=== PATIENT | female | born 1940 | race Caucasian/White ===

== ENCOUNTER 2016-11-10 14:11 | Outpatient (CLI) | payer MEDICARE, BC ==
[2016-11-10 19:11] LABS: BASOPHILS % (AUTO) 0.7 %; EOSINOPHILS # (AUTO) 0.1 10^3/uL (0.0-0.7); EOSINOPHILS % (AUTO) 2.1 %; HCT - HEMATOCRIT 39.5 % (37.0-47.0); HGB - HEMOGLOBIN 13.2 g/dL (12.0-16.0); LYMPHOCYTES # (AUTO) 1.8 10^3/uL (1.5-3.5); LYMPHOCYTES % (AUTO) 31.9 %; MEAN CORPUSCULAR HEMOGLOBIN 30.7 pg (27.0-31.0); MEAN CORPUSCULAR HGB CONC 33.4 g/dL (32.0-36.0); MEAN CORPUSCULAR VOLUME 91.8 fL (81.0-99.0); MEAN PLATELET VOLUME 8.8 fL (7.9-10.8); MONOCYTES # (AUTO) 0.4 10^3/uL (0.0-1.0); NEUTROPHILS # (AUTO) 3.4 10^3/uL (1.5-6.6); NEUTROPHILS % (AUTO) 58.3 %; RED CELL DISTRIBUTION WIDTH 13.4 % (12.0-15.0); UNCORRECTED WHITE BLOOD COUNT 5.8 x10^3/uL; WHITE BLOOD COUNT 5.8 x10^3/uL (4.8-10.8)
[2016-11-10 19:25] LABS: HEMOGLOBIN A1C 0.55 g/dL
[2016-11-10 19:31] LABS: ALBUMIN/GLOBULIN RATIO 1.8 (1.0-2.2); BILIRUBIN,TOTAL 0.9 mg/dL (0.2-1.0); BUN - BLOOD UREA NITROGEN 10 mg/dL (6-20); CALCIUM 9.7 mg/dL (8.5-10.3); CARBON DIOXIDE - CO2 28 mmol/L (21-32); CHLORIDE 103 mmol/L (101-111); CHOL/HDL RATIO 5.4 (<4.4); CHOLESTEROL 249 mg/dL; CREATININE 0.7 mg/dL (0.4-1.0); GFR - MDRD 82 (>89); GLUCOSE 105 mg/dL (70-100); HDL CHOLESTEROL 46 mg/dL; LDL/HDL RATIO 3.1 (<4.4); POTASSIUM 4.2 mmol/L (3.5-5.0); SODIUM 138 mmol/L (135-145); TOTAL PROTEIN 7.7 g/dL (6.7-8.2); TRIGLYCERIDES 310 mg/dL; VLDL CHOLESTEROL 62 mg/dL
== END 2016-11-10 14:12 | disposition home or self-care (01) ==
LOC: LAB.WCP 14:11
PROVIDERS: ATTEND Physician Assistant Medical
DX: E78.9 Disorder of lipoprotein metabolism, unspecified (principal); R73.9 Hyperglycemia, unspecified; K21.9 Gastro-esophageal reflux disease without esophagitis
CPT/HCPCS: 36415; 80053; 80061; 83036; 85025

== ENCOUNTER 2017-06-14 09:44 | Outpatient (CLI) | payer MEDICARE, BC ==
--- NOTE | 2017-06-17 12:09 | Mammography Report ---
BILATERAL DIAGNOSTIC MAMMOGRAM, AND LEFT BREAST ULTRASOUND: 06/14/2017 HISTORY: Breast pain. Status post breast implant explantation. COMPARISON: 09/10/2013, 08/20/2009, 02/10/2007. TECHNIQUE: Bilateral digital CC, MLO, left true lateral views were obtained. FINDINGS: There are scattered fibroglandular densities. Asymmetry of the breast tissue with deformity of the inferior left breast is consistent with prior surgery and explantation. There is no new dominant mass, skin thickening, clustered suspicious microcalcification, or significant interval change. LEFT BREAST ULTRASOUND TECHNIQUE: Real-time scanning by the coal carrier of the inferior left breast from the 4-o'clock to 8-o'clock position. This corresponds to the area of clinical pain. FINDINGS: No cystic or solid mass, abnormal fluid collection or other finding. IMPRESSION: NEGATIVE. BI-RADS CATEGORY 1 - NEGATIVE. SUGGEST CLINICAL FOLLOWUP OF LEFT BREAST PAIN AND ROUTINE SCREENING IN 12 MONTHS. STANDARD QUALIFYING STATEMENTS 1. This examination was reviewed with the aid of Computer-Aided Detection (CAD). 2. A negative or benign imaging report should not delay biopsy if clinically suspicious findings are present. Consider surgical consultation if warranted. More than 5% of cancers are not identified by imaging. 3. Dense breasts may obscure an underlying neoplasm. TD: 06/14/2017 13:27
== END 2017-06-14 09:45 | disposition home or self-care (01) ==
LOC: DI 09:44
PROVIDERS: ATTEND Physician Assistant Medical
DX: N64.4 Mastodynia (principal)
CPT/HCPCS: 76642; 77066

== ENCOUNTER 2017-11-30 10:29 | Outpatient (CLI) | payer MEDICARE, BC ==
[2017-11-30 13:02] LABS: BASOPHILS % (AUTO) 0.7 %; EOSINOPHILS # (AUTO) 0.1 10^3/uL (0.0-0.7); EOSINOPHILS % (AUTO) 3.2 %; HGB - HEMOGLOBIN 12.6 g/dL (12.0-16.0); LYMPHOCYTES # (AUTO) 1.6 10^3/uL (1.5-3.5); LYMPHOCYTES % (AUTO) 39.3 %; MEAN CORPUSCULAR HEMOGLOBIN 31.7 pg (27.0-31.0); MEAN CORPUSCULAR HGB CONC 34.6 g/dL (32.0-36.0); MEAN CORPUSCULAR VOLUME 91.8 fL (81.0-99.0); MEAN PLATELET VOLUME 8.7 fL (7.9-10.8); MONOCYTES # (AUTO) 0.3 10^3/uL (0.0-1.0); MONOCYTES % (AUTO) 8.3 %; NEUTROPHILS % (AUTO) 48.5 %; PLT - PLATELET COUNT 173 10^3/uL (130-450); RED BLOOD COUNT 3.98 10^6/uL (4.20-5.40); RED CELL DISTRIBUTION WIDTH 13.6 % (12.0-15.0)
[2017-11-30 13:57] LABS: ALBUMIN 4.4 g/dL (3.2-5.5); ALBUMIN/GLOBULIN RATIO 1.5 (1.0-2.2); ALKALINE PHOSPHATASE 66 IU/L (42-121); ALT ALANINE AMINOTRANSFERASE 19 IU/L (10-60); AST ASPARTATE AMINOTRANSFERASE 21 IU/L (10-42); BILIRUBIN,TOTAL 0.6 mg/dL (0.2-1.0); BUN - BLOOD UREA NITROGEN 11 mg/dL (6-20); CALCIUM 9.2 mg/dL (8.5-10.3); CARBON DIOXIDE - CO2 26 mmol/L (21-32); CHLORIDE 105 mmol/L (101-111); CHOL/HDL RATIO 4.9 (<4.4); CHOLESTEROL 211 mg/dL; CREATININE 0.7 mg/dL (0.4-1.0); GFR - MDRD 82 (>89); GLUCOSE 106 mg/dL (70-100); HDL CHOLESTEROL 43 mg/dL; LDL CHOLESTEROL,CALCULATED 122 mg/dL; LDL/HDL RATIO 2.8 (<4.4); SODIUM 138 mmol/L (135-145); TOTAL PROTEIN 7.3 g/dL (6.7-8.2); VLDL CHOLESTEROL 46 mg/dL
[2017-11-30 13:59] LABS: HB2 TOTAL 12.9 g/dL; HEMOGLOBIN A1C 0.48 g/dL; HEMOGLOBIN A1C % 5.6 % (4.6-6.2)
== END 2017-11-30 10:30 | disposition home or self-care (01) ==
LOC: LAB.WCP 10:29
PROVIDERS: ATTEND Physician Assistant Medical
DX: E78.9 Disorder of lipoprotein metabolism, unspecified (principal); R73.9 Hyperglycemia, unspecified; K21.9 Gastro-esophageal reflux disease without esophagitis
CPT/HCPCS: 36415; 80053; 80061; 83036; 83721; 85025

== ENCOUNTER 2018-12-04 08:00 | Outpatient (CLI) | payer MEDICARE, BC ==
[2018-12-04 13:57] LABS: ALBUMIN 4.5 g/dL (3.2-5.5); ALBUMIN/GLOBULIN RATIO 1.4 (1.0-2.2); ALKALINE PHOSPHATASE 83 IU/L (42-121); ALT ALANINE AMINOTRANSFERASE 30 IU/L (10-60); AST ASPARTATE AMINOTRANSFERASE 24 IU/L (10-42); BILIRUBIN,TOTAL 0.8 mg/dL (0.2-1.0); BUN - BLOOD UREA NITROGEN 9 mg/dL (6-20); CALCIUM 9.5 mg/dL (8.5-10.3); CARBON DIOXIDE - CO2 28 mmol/L (21-32); CHLORIDE 102 mmol/L (101-111); CHOL/HDL RATIO 4.6 (<4.4); CHOLESTEROL 230 mg/dL; CREATININE 0.8 mg/dL (0.4-1.0); GFR - MDRD 70 (>89); GLUCOSE 105 mg/dL (70-100); HDL CHOLESTEROL 50 mg/dL; LDL CHOLESTEROL,CALCULATED 110 mg/dL; LDL/HDL RATIO 2.2 (<4.4); SODIUM 139 mmol/L (135-145); TOTAL PROTEIN 7.7 g/dL (6.7-8.2); VLDL CHOLESTEROL 70 mg/dL
[2018-12-04 13:59] LABS: HB2 TOTAL 13.9 g/dL; HEMOGLOBIN A1C 0.54 g/dL; HEMOGLOBIN A1C % 5.7 % (4.6-6.2)
[2018-12-04 14:00] LABS: BASOPHILS % (AUTO) 0.4 %; EOSINOPHILS # (AUTO) 0.1 10^3/uL (0.0-0.7); HGB - HEMOGLOBIN 13.2 g/dL (12.0-16.0); LYMPHOCYTES # (AUTO) 1.5 10^3/uL (1.5-3.5); LYMPHOCYTES % (AUTO) 18.9 %; MEAN CORPUSCULAR HEMOGLOBIN 31.7 pg (27.0-31.0); MEAN CORPUSCULAR VOLUME 96.2 fL (81.0-99.0); MEAN PLATELET VOLUME 10.6 fL (7.9-10.8); MONOCYTES # (AUTO) 0.8 10^3/uL (0.0-1.0); MONOCYTES % (AUTO) 10.6 %; NEUTROPHILS # (AUTO) 5.3 10^3/uL (1.5-6.6); NEUTROPHILS % (AUTO) 68.8 %; PLT - PLATELET COUNT 165 10^3/uL (130-450); RED BLOOD COUNT 4.16 10^6/uL (4.20-5.40); RED CELL DISTRIBUTION WIDTH 12.8 % (12.0-15.0); WHITE BLOOD COUNT 7.7 x10^3/uL (4.8-10.8)
== END 2018-12-04 23:59 | disposition home or self-care (01) ==
LOC: LAB.WCP 08:00
PROVIDERS: ATTEND Physician Assistant Medical
DX: E78.5 Hyperlipidemia, unspecified (principal); R73.9 Hyperglycemia, unspecified; K21.9 Gastro-esophageal reflux disease without esophagitis
CPT/HCPCS: 36415; 80053; 80061; 83036; 83721; 84443; 85025

== ENCOUNTER 2019-01-19 08:00 | Outpatient (CLI) | payer MEDICARE, BC | END 2019-01-19 23:59 | disposition home or self-care (01) | LOC: LAB.R 08:00 | PROVIDERS: ATTEND Physician Assistant | DX: R19.7 Diarrhea, unspecified (principal) | CPT/HCPCS: 81599; 82274; 87045; 87046; 87177; 87209; 87329; 87493 ==

== ENCOUNTER 2019-10-03 08:39 | Outpatient (CLI) | payer MEDICARE, BC ==
[2019-10-03 12:07] LABS: ALBUMIN 4.7 g/dL (3.2-5.5); ALBUMIN/GLOBULIN RATIO 1.5 (1.0-2.2); ALKALINE PHOSPHATASE 63 IU/L (42-121); ALT ALANINE AMINOTRANSFERASE 22 IU/L (10-60); AST ASPARTATE AMINOTRANSFERASE 21 IU/L (10-42); BUN - BLOOD UREA NITROGEN 13 mg/dL (6-20); CALCIUM 9.7 mg/dL (8.5-10.3); CARBON DIOXIDE - CO2 25 mmol/L (21-32); CHLORIDE 105 mmol/L (101-111); CREATININE 0.8 mg/dL (0.4-1.0); GLUCOSE 106 mg/dL (70-100); SODIUM 138 mmol/L (135-145); TOTAL PROTEIN 7.8 g/dL (6.7-8.2)
== END 2019-10-03 23:59 | disposition home or self-care (01) ==
LOC: LAB.WCP 08:39
PROVIDERS: ATTEND Family Medicine
DX: R26.0 Ataxic gait (principal); I10 Essential (primary) hypertension
CPT/HCPCS: 36415; 80053; 82607; 84443

== ENCOUNTER 2020-05-24 14:17 | Emergency (ER) | payer MEDICARE, BC ==
--- NOTE | 2020-05-24 14:37 | ED Physician Documentation ---
PD HPI SYNCOPE - Stated complaint Stated Complaint: NAUSEA/WEAKNESS - Chief complaint Chief Complaint: General - History obtained from History obtained from: Patient, Family - History of Present Illness Witnessed: Unwitnessed (She states she was sitting on the toilet, just had a bowel movement and felt lightheaded then awoke face against sink. Mild contusion on the bridge of her nose. She denies any headache. She called her son to help her up. She has continued mild general weakness without other specific sxs.) Timing - onset: Yesterday Duration: Minutes Preceding symptoms: Light headed. No: Headache, Chest pain, Dyspnea, Abdominal pain Associated symptoms: Nausea / vomiting (emesis once at time of the syncope.) Contributing factors: Other (just had bowel movement. She states she had 2nd COVID shot 5 days ago but was feeling okay without fevers, myalgias, vomiting nor diarrhea.). No: Recent med change, Decreased PO intake, Just stood up Injury occurred: No: Head injury (bridge of nose, but not head itself.), Neck injury Similar symptoms before: Has not had sx before Recently seen: Not recently seen Review of Systems Constitutional: denies: Fever, Chills, Myalgias (just some local soreness left deltoid area where she got her vaccine.) Nose: denies: Rhinorrhea / runny nose, Congestion Respiratory: denies: Dyspnea, Cough GI: denies: Abdominal Pain, Nausea, Diarrhea, Bloody / black stool : denies: Dysuria Skin: denies: Abrasion (s), Laceration (s) Musculoskeletal: denies: Neck pain, Back pain Neurologic: reports: Generalized weakness. denies: Focal weakness, Numbness, Confused, Altered mental status, Headache Psychiatric: denies: Insomnia Endocrine: denies: Weight loss PD PAST MEDICAL HISTORY - Past Medical History Cardiovascular: Hypertension, High cholesterol - Past Surgical History Past Surgical History: Yes - Present Medications Home Medications: Ambulatory Orders Medication Instructions Recorded Confirmed Atorvastatin Calcium 10 mg PO DAILY 05/24/20 05/24/20 Mecobalamin [B12 Active] 1,000 mcg PO DAILY 05/24/20 05/24/20 Melatonin/Pyridoxine [Melatonin 5 5 mg PO DAILY PM 05/24/20 05/24/20 mg Tablet] Metoprolol Tartrate [Lopressor] 50 mg PO DAILY 05/24/20 05/24/20 Pantoprazole [Protonix] 1 tab PO DAILY 05/24/20 05/24/20 Sertraline HCl [Zoloft] 1 tab PO DAILY 05/24/20 05/24/20 Ubidecarenone [Co Q-10] 100 mg PO DAILY 05/24/20 05/24/20 - Allergies Allergies/Adverse Reactions: Allergies Allergy/AdvReac Type Severity Reaction Status Date / Time erythromycin lactobionate * Allergy Severe Hives Verified 05/24/20 14:45 [From Erythrocin] Penicillins Allergy Severe Hives Verified 05/24/20 14:45 Sulfa (Sulfonamide Allergy Severe Hives Verified 05/24/20 14:45 Antibiotics) - Social History Does the pt smoke?: No Smoking Status: Never smoker Does the pt drink ETOH?: Yes - Immunizations Immunizations are current?: No PD ED PE NORMAL - Vitals Vital signs reviewed: Yes - General General: Alert and oriented X 3, No acute distress, Well developed/nourished - HEENT HEENT: Atraumatic, Moist mucous membranes, Pharynx benign, Other (mild tenderness bridge of nose without deformity. ) - Neck Neck: Supple, no meningeal sign, No adenopathy - Cardiac Cardiac: RRR, No murmur - Respiratory Respiratory: Clear bilaterally - Abdomen Abdomen: Normal bowel sounds, Soft, Non tender - Rectal Rectal: Deferred - Back Back: No CVA TTP, No spinal TTP - Derm Derm: Normal color, Warm and dry - Extremities Extremities: No tenderness to palpate, Normal ROM s pain, No edema, No calf tenderness / cord - Neuro Neuro: Alert and oriented X 3, No motor deficit, No sensory deficit, Normal speech Eye Opening: Spontaneous Motor: Obeys Commands Verbal: Oriented GCS Score: 15 Results - Vitals Vitals: Vital Signs - 24 hr 05/24/20 05/24/20 05/24/20 14:24 14:56 15:54 Temperature 36.3 C L 36.3 C L Heart Rate 60 60 60 Respiratory 18 18 14 Rate Blood Pressure 169/68 H 169/68 H 151/60 H O2 Saturation 99 99 100 Oxygen O2 Source Room air - Labs Labs: Laboratory Tests 05/24/20 05/24/20 05/24/20 15:22 15:22 15:22 WBC 6.9 RBC 3.84 L Hgb 12.2 Hct 36.5 L MCV 95.1 MCH 31.8 H MCHC 33.4 RDW 12.4 Plt Count 156 MPV 10.4 Neut # (Auto) 4.1 Lymph # (Auto) 1.8 [place] # (Auto) 0.6 Eos # (Auto) 0.3 Baso # (Auto) 0.0 Absolute Nucleated RBC 0.00 Nucleated RBC % 0.0 Sodium 134 L Potassium 4.0 Chloride 100 L Carbon Dioxide 24 Anion Gap 10.0 BUN 12 Creatinine 0.8 Estimated GFR (MDRD) 69 L Glucose 101 H Calcium 9.4 Magnesium 1.9 Total Bilirubin 0.8 AST 22 ALT 31 Alkaline Phosphatase 81 Troponin I High Sens 2.8 Total Protein 7.3 Albumin 4.5 Globulin 2.8 Albumin/Globulin Ratio 1.6 Lipase 25 Urine Color Urine Clarity Urine pH Ur Specific [place] Urine Protein Urine Glucose (UA) Urine Ketones Urine Occult Blood Urine Nitrite Urine Bilirubin Urine Urobilinogen Ur Leukocyte Esterase Ur Microscopic Review Urine Culture Comments 05/24/20 16:35 WBC RBC Hgb Hct MCV MCH MCHC RDW Plt Count MPV Neut # (Auto) Lymph # (Auto) [place] # (Auto) Eos # (Auto) Baso # (Auto) Absolute Nucleated RBC Nucleated RBC % Sodium Potassium Chloride Carbon Dioxide Anion Gap BUN Creatinine Estimated GFR (MDRD) Glucose Calcium Magnesium Total Bilirubin AST ALT Alkaline Phosphatase Troponin I High Sens Total Protein Albumin Globulin Albumin/Globulin Ratio Lipase Urine Color YELLOW Urine Clarity CLEAR Urine pH 6.5 Ur Specific [place] 1.010 Urine Protein NEGATIVE Urine Glucose (UA) NEGATIVE Urine Ketones NEGATIVE Urine Occult Blood NEGATIVE Urine Nitrite NEGATIVE Urine Bilirubin NEGATIVE Urine Urobilinogen 0.2 (NORMAL) Ur Leukocyte Esterase NEGATIVE Ur Microscopic Review NOT INDICATED Urine Culture Comments NOT INDICATED PD MEDICAL DECISION MAKING - ED course Complexity details: reviewed results (Her blood tests EKG and chest x-ray are normal. No signs of heart attack. Blood sugar and electrolytes are good. No signs of infectious cause based on urine chest x-ray and blood count. I presume she had a transient drop in her blood pressure leading to the fainting.), considered differential (Sounds possibly vasovagal episode. No obvious cause based on history and symptoms and initial exam. Can do some basic labs EKG and monitor. I think less likely related to her vaccine 5 days ago. She had not really had ongoing symptoms.), d/w patient Departure - Departure Disposition: 01 Home, Self Care Clinical Impression: Episode of syncope Qualifiers: Syncope type: vasovagal syncope Qualified Code(s): R55 - Syncope and collapse Condition: Stable Record reviewed to determine appropriate education?: Yes Instructions: ED Syncope Vasovagal, ED Fainting Unkn Cause Follow-Up: Nicki Ortiz PA-C [Primary Care Provider] - Comments: Your EKG, chest x-ray, blood tests and urine test appear normal. No signs of heart attack or heart related cause for your fainting episode. You are not anemic. Your electrolytes are good. No signs of infection such as bladder or chest. This likely represents a random single episode. It may connect to the vaccine you have gotten on Tuesday though a would not say for sure. Vasovagal fainting episodes (a transient drop in blood pressure) occur occasionally and can relate to under hydration or other causes. However the testing above has really excluded significant causes. Continue usual medications. Stay well-hydrated. Recheck if recurrent episodes or associated lightheadedness or other problems.
[2020-05-24] MEDS ORDERED: SODIUM CHLORIDE 0.9% 1,000 ML IV STA (14:59)
--- NOTE | 2020-05-24 15:26 | XRAY Report ---
PROCEDURE: Chest 1 View X-Ray INDICATIONS: Chest Pain TECHNIQUE: One view of the chest was acquired. COMPARISON: 04/14/2016 FINDINGS: Surgical changes and devices: None. Lungs and pleura: No pleural effusions or pneumothorax. Lungs are clear. Mediastinum: Mediastinal contours appear normal. Heart size is normal. Bones and chest wall: No suspicious bony lesions. Overlying soft tissues appear unremarkable. IMPRESSION: No evidence acute pulmonary process. Reviewed by: Omar Ball MD on 05/24/2020 2:25 PM [facility] Approved by: Omar Ball MD on 05/24/2020 2:25 PM [facility] Station ID: [id number]
[2020-05-24 15:32] LABS: BASOPHILS % (AUTO) 0.6 %; EOSINOPHILS # (AUTO) 0.3 10^3/uL (0.0-0.7); EOSINOPHILS % (AUTO) 4.1 %; HCT - HEMATOCRIT 36.5 % (37.0-47.0); HGB - HEMOGLOBIN 12.2 g/dL (12.0-16.0); LYMPHOCYTES # (AUTO) 1.8 10^3/uL (1.5-3.5); LYMPHOCYTES % (AUTO) 26.6 %; MEAN CORPUSCULAR HEMOGLOBIN 31.8 pg (27.0-31.0); MEAN CORPUSCULAR HGB CONC 33.4 g/dL (32.0-36.0); MEAN CORPUSCULAR VOLUME 95.1 fL (81.0-99.0); MEAN PLATELET VOLUME 10.4 fL (7.9-10.8); MONOCYTES # (AUTO) 0.6 10^3/uL (0.0-1.0); MONOCYTES % (AUTO) 9.3 %; NEUTROPHILS # (AUTO) 4.1 10^3/uL (1.5-6.6); NEUTROPHILS % (AUTO) 59.1 %; PLT - PLATELET COUNT 156 10^3/uL (130-450); RED BLOOD COUNT 3.84 10^6/uL (4.20-5.40); RED CELL DISTRIBUTION WIDTH 12.4 % (12.0-15.0); WHITE BLOOD COUNT 6.9 x10^3/uL (4.8-10.8)
[2020-05-24 15:44] LABS: ALBUMIN 4.5 g/dL (3.2-5.5); ALBUMIN/GLOBULIN RATIO 1.6 (1.0-2.2); BILIRUBIN,TOTAL 0.8 mg/dL (0.2-1.0); CALCIUM 9.4 mg/dL (8.5-10.3); CREATININE 0.8 mg/dL (0.4-1.0); MAGNESIUM 1.9 mg/dL (1.7-2.8); TOTAL PROTEIN 7.3 g/dL (6.7-8.2)
[2020-05-24 16:44] LABS: BILIRUBIN,URINE NEGATIVE (NEGATIVE); GLUCOSE, URINE (UA) NEGATIVE (NEGATIVE); KETONES,URINE (UA) NEGATIVE (NEGATIVE); LEUKOCYTE ESTERASE, URINE NEGATIVE (NEGATIVE); NITRITE,URINE NEGATIVE (NEGATIVE); OCCULT BLOOD,URINE NEGATIVE (NEGATIVE); PH,URINE 6.5 PH (5.0-7.5); PROTEIN,URINE NEGATIVE (NEGATIVE); UROBILINOGEN,URINE 0.2 (NORMAL) E.U./dL (NORMAL)
[2020-05-24 16:46] LABS: CLARITY,URINE CLEAR (CLEAR)
[2020-05-24 17:16] VITALS: BP 171/64
== END 2020-05-24 15:20 | disposition home or self-care (01) ==
LOC: ED 14:17
DX: R55 Syncope and collapse (principal)
CPT/HCPCS: 36415; 80053; 81001; 81003; 83690; 83735; 84484; 85025; 87086; 93005; 99284

== ENCOUNTER 2020-09-30 13:25 | Outpatient (CLI) | payer MEDICARE, BC | END 2020-09-30 23:59 | disposition home or self-care (01) | LOC: LAB.N 13:25 | PROVIDERS: ATTEND Physician Assistant Medical | DX: J06.9 Acute upper respiratory infection, unspecified (principal); Z20.822 Contact with and (suspected) exposure to COVID-19 ==

== ENCOUNTER 2021-06-20 14:05 | Emergency (ER) | payer MEDICARE, BC ==
--- NOTE | 2021-06-20 14:30 | ED Physician Documentation ---
History of Present Illness - Stated complaint Stated Complaint: WEAKNESS/VOMITING - Chief complaint Chief Complaint: General - History obtained from History obtained from: Patient - History of Present Illness Timing: How many days ago (3) Pain level max: 0 Pain level now: 0 - Additonal information Additional information: 81-year-old female presents to the emergency department stating that she "has not felt well" for the past 3 days. Has had nausea for 3 days. Vomiting yesterday. Today she states she just feels weak all over. No chest pain. No shortness of breath. No headache. No vision changes. No focal neurological deficits. Review of Systems Ten Systems: 10 systems reviewed and negative Constitutional: denies: Fever, Chills Eyes: denies: Decreased vision Ears: denies: Ear pain Nose: denies: Rhinorrhea / runny nose, Congestion Throat: denies: Sore throat Cardiac: denies: Chest pain / pressure Respiratory: denies: Dyspnea, Cough GI: reports: Nausea, Vomiting. denies: Abdominal Pain, Diarrhea, Hematemesis, Bloody / black stool : denies: Dysuria Skin: denies: Rash Musculoskeletal: denies: Neck pain, Back pain Neurologic: denies: Headache PD PAST MEDICAL HISTORY - Past Medical History Cardiovascular: Hypertension, High cholesterol - Past Surgical History Past Surgical History: Yes - Present Medications Home Medications: Ambulatory Orders Medication Instructions Recorded Confirmed Atorvastatin Calcium 10 mg PO DAILY 05/24/20 06/20/21 Mecobalamin [B12 Active] 1,000 mcg PO DAILY 05/24/20 05/24/20 Melatonin/Pyridoxine [Melatonin 5 5 mg PO DAILY PM 05/24/20 05/24/20 mg Tablet] Metoprolol Tartrate [Lopressor] 50 mg PO DAILY 05/24/20 05/24/20 Pantoprazole [Protonix] 1 tab PO DAILY 05/24/20 05/24/20 Sertraline HCl [Zoloft] 1 tab PO DAILY 05/24/20 05/24/20 Ubidecarenone [Co Q-10] 100 mg PO DAILY 05/24/20 05/24/20 Ondansetron Odt [Zofran] 4 mg TL Q6H PRN #10 tablet 06/20/21 - Allergies Allergies/Adverse Reactions: Allergies Allergy/AdvReac Type Severity Reaction Status Date / Time erythromycin lactobionate * Allergy Severe Hives Verified 06/20/21 14:12 [From Erythrocin] Penicillins Allergy Severe Hives Verified 06/20/21 14:12 Sulfa (Sulfonamide Allergy Severe Hives Verified 06/20/21 14:12 Antibiotics) - Social History Does the pt smoke?: No Smoking Status: Never smoker Does the pt drink ETOH?: Yes Does the pt have substance abuse?: No - Immunizations Immunizations are current?: No - POLST Patient has POLST: No PD ED PE NORMAL - Vitals Vital signs reviewed: Yes - General General: Alert and oriented X 3, No acute distress - HEENT HEENT: Atraumatic, PERRL, Moist mucous membranes - Neck Neck: Supple, no meningeal sign - Cardiac Cardiac: RRR, Strong equal pulses - Respiratory Respiratory: No respiratory distress, Clear bilaterally - Abdomen Abdomen: Soft, Non tender, Non distended - Derm Derm: Warm and dry - Extremities Extremities: No edema, No calf tenderness / cord - Neuro Neuro: Alert and oriented X 3 - Psych Psych: Normal mood, Normal affect Results - Vitals Vitals: Vital Signs - 24 hr 06/20/21 06/20/21 14:12 15:57 Temperature 36.5 C 36.9 C Heart Rate 54 L 55 L Respiratory 16 16 Rate Blood Pressure 180/76 H 177/76 H O2 Saturation 98 97 Oxygen O2 Source Room air - Labs Labs: Laboratory Tests 06/20/21 06/20/21 06/20/21 14:29 14:29 15:30 WBC 5.9 RBC 4.51 Hgb 13.9 Hct 41.5 MCV 92.0 MCH 30.8 MCHC 33.5 RDW 12.3 Plt Count 174 MPV 9.8 Neut # (Auto) 3.5 Lymph # (Auto) 1.8 [place] # (Auto) 0.5 Eos # (Auto) 0.2 Baso # (Auto) 0.0 Absolute Nucleated RBC 0.00 Nucleated RBC % 0.0 Sodium 133 L Potassium 4.0 Chloride 96 L Carbon Dioxide 27 Anion Gap 10.0 BUN 9 Creatinine 0.8 Estimated GFR (MDRD) 69 L Glucose 130 H Calcium 9.6 Total Bilirubin 0.9 AST 33 ALT 50 Alkaline Phosphatase 89 Total Protein 7.8 Albumin 4.8 Globulin 3.0 Albumin/Globulin Ratio 1.6 Lipase 32 Urine Color YELLOW Urine Clarity CLEAR Urine pH 6.5 Ur Specific [place] <=1.005 Urine Protein NEGATIVE Urine Glucose (UA) NEGATIVE Urine Ketones NEGATIVE Urine Occult Blood NEGATIVE Urine Nitrite NEGATIVE Urine Bilirubin NEGATIVE Urine Urobilinogen 0.2 (NORMAL) Ur Leukocyte Esterase NEGATIVE Ur Microscopic Review NOT INDICATED Urine Culture Comments NOT INDICATED PD MEDICAL DECISION MAKING - ED course Complexity details: reviewed results, re-evaluated patient, considered differential, d/w patient, d/w family ED course: Patient feels much better after Zofran and IV fluids. Tolerating p.o. without difficulty. Likely represents a viral syndrome. Patient is very well- appearing, nontoxic. Afebrile. Abdomen is soft, nontender nondistended on serial exam. We will have her follow-up with her doctor for further care. Patient counseled regarding signs and symptoms for which I believe and urgent re-evaluation would be necessary. Patient with good understanding of and agreement to plan and is comfortable going home at this time This document was made in part using voice recognition software. While efforts are made to proofread this document, sound alike and grammatical errors may occur. Departure - Departure Disposition: 01 Home, Self Care Clinical Impression: Viral syndrome Nausea & vomiting Qualifiers: Vomiting type: unspecified Qualified Code(s): R11.2 - Nausea with vomiting, unspecified Condition: Good Instructions: ED Nausea Vomiting Follow-Up: Nicki Ortiz PA-C [Primary Care Provider] - Within 1 week Prescriptions: Ondansetron Odt [Zofran] 4 mg TL Q6H PRN #10 tablet PRN Reason: Nausea / Vomiting Comments: Drink plenty of water. Follow-up with your doctor for further care. A prescription for Zofran was sent to [facility] in [place]. Continue your c urrent medications. Your blood work does not show any significant abnormalities today. Discharge Date/Time: 06/20/21 15:57
[2021-06-20] MEDS ORDERED: ONDANSETRON 4 MG/2 ML VIAL IVP STA (14:31)
[2021-06-20 14:34] LABS: BASOPHILS % (AUTO) 0.7 %; EOSINOPHILS # (AUTO) 0.2 10^3/uL (0.0-0.7); EOSINOPHILS % (AUTO) 2.9 %; HCT - HEMATOCRIT 41.5 % (37.0-47.0); HGB - HEMOGLOBIN 13.9 g/dL (12.0-16.0); LYMPHOCYTES # (AUTO) 1.8 10^3/uL (1.5-3.5); MEAN CORPUSCULAR HEMOGLOBIN 30.8 pg (27.0-31.0); MEAN CORPUSCULAR HGB CONC 33.5 g/dL (32.0-36.0); MEAN PLATELET VOLUME 9.8 fL (7.9-10.8); MONOCYTES # (AUTO) 0.5 10^3/uL (0.0-1.0); MONOCYTES % (AUTO) 7.9 %; NEUTROPHILS # (AUTO) 3.5 10^3/uL (1.5-6.6); NEUTROPHILS % (AUTO) 58.2 %; PLT - PLATELET COUNT 174 10^3/uL (130-450); RED BLOOD COUNT 4.51 10^6/uL (4.20-5.40); RED CELL DISTRIBUTION WIDTH 12.3 % (12.0-15.0); WHITE BLOOD COUNT 5.9 x10^3/uL (4.8-10.8)
[2021-06-20] MEDS ORDERED: SODIUM CHLORIDE 0.9% 1,000 ML IV STA (14:44)
[2021-06-20 14:47] LABS: ALBUMIN 4.8 g/dL (3.2-5.5); ALBUMIN/GLOBULIN RATIO 1.6 (1.0-2.2); BILIRUBIN,TOTAL 0.9 mg/dL (0.2-1.0); CALCIUM 9.6 mg/dL (8.5-10.3); CREATININE 0.8 mg/dL (0.4-1.0); TOTAL PROTEIN 7.8 g/dL (6.7-8.2)
[2021-06-20 15:37] LABS: BILIRUBIN,URINE NEGATIVE (NEGATIVE); CLARITY,URINE CLEAR (CLEAR); GLUCOSE, URINE (UA) NEGATIVE (NEGATIVE); KETONES,URINE (UA) NEGATIVE (NEGATIVE); LEUKOCYTE ESTERASE, URINE NEGATIVE (NEGATIVE); NITRITE,URINE NEGATIVE (NEGATIVE); OCCULT BLOOD,URINE NEGATIVE (NEGATIVE); PH,URINE 6.5 PH (5.0-7.5); PROTEIN,URINE NEGATIVE (NEGATIVE); UROBILINOGEN,URINE 0.2 (NORMAL) E.U./dL (NORMAL)
[2021-06-20 16:00] VITALS: BP 177/76
== END 2021-06-20 15:57 | disposition home or self-care (01) ==
LOC: ED 14:05
DX: B34.9 Viral infection, unspecified (principal); I10 Essential (primary) hypertension
CPT/HCPCS: 36415; 80053; 81001; 81003; 83690; 85025; 87086; 96361; 96374; 99282

== ENCOUNTER 2021-07-29 13:31 | Outpatient (CLI) | payer MEDICARE, BC ==
--- NOTE | 2021-07-29 21:10 | MRI Report ---
PROCEDURE: Brain W/O INDICATIONS: MIXED HEADACHE, HYPERTENSION TECHNIQUE: Noncontrast axial T1 spin echo, axial T2 fast spin echo, sagittal and axial FLAIR, coronal T2 fast sp in echo, axial gradient echo, axial diffusion and ADC through the brain. COMPARISON: None. FINDINGS: Image quality: Excellent. CSF Spaces: Basal cisterns are patent. No extra-axial fluid collections. Ventricles are normal in size and shape. Brain: No intracranial masses or hemorrhage. Hurd/white matter interface is normal. Brainstem appe ars normal. Diffusion-weighted images demonstrate no acute ischemic insult. No chronic ischemic ins ults. Normal intravascular flow voids are present. Skull and face: Calvarium has normal marrow signal. Orbits appear normal. Sinuses: Sinuses and mastoids are clear. IMPRESSION: 1. No acute intracranial process. 2. Moderate to severe atrophy and chronic microvascular ischemic changes. Reviewed by: Teri Vásquez MD on 07/29/2021 9:09 PM PDT Approved by: Teri Vásquez MD on 07/29/2021 9:09 PM PDT Station ID: [id number]
== END 2021-07-29 13:32 | disposition home or self-care (01) ==
LOC: DI 13:31
PROVIDERS: ATTEND Physician Assistant Medical
DX: G44.89 Other headache syndrome (principal); G31.89 Other specified degenerative diseases of nervous system; I67.82 Cerebral ischemia

== ENCOUNTER 2021-08-12 15:50 | Outpatient (CLI) | payer MEDICARE, BC ==
--- NOTE | 2021-08-13 15:40 | Ultrasound Report ---
PROCEDURE: Carotid Doppler Complete INDICATIONS: MIXED HEADACHE, HYPERTENSION TECHNIQUE: Color and pulse Doppler interrogation was performed of both carotid systems, with image documentation and velocity measurements. COMPARISON: None. FINDINGS: Right side: Brachial blood pressure: 134/57 mm Hg. Common carotid artery peak systolic velocity: 89 cm/sec. Internal carotid artery peak systolic velocity: 80 cm/sec. Internal carotid artery end diastolic velocity: 18 cm/sec. External carotid artery peak systolic velocity: 143 cm/sec. ICA/CCA peak systolic ratio: 1 . Hurd scale imaging description: Mild plaque at the bifurcation Percent internal carotid artery stenosis: Less than 50% . Vertebral artery: Flow direction is antegrade. Left side: Brachial blood pressure: 139/57 mm Hg. Common carotid artery peak systolic velocity: 93 cm/sec. Internal carotid artery peak systolic velocity: 94 cm/sec. Internal carotid artery end diastolic velocity: 23 cm/sec. External carotid artery peak systolic velocity: 120 cm/sec. ICA/CCA peak systolic ratio: 1 . Hurd scale imaging description: Mild plaque at the bifurcation Percent internal carotid artery stenosis: Mild plaque at the bifurcations bilaterally with less than 50% stenosis. . Vertebral artery: Flow direction is antegrade. IMPRESSION: Less than 50% stenosis of the internal carotid arteries bilaterally. The estimate of stenosis included in the report of the imaging study was calculated using the NASCET method Reviewed by: Teri Vásquez MD on 08/13/2021 3:39 PM PDT Approved by: Teri Vásquez MD on 08/13/2021 3:39 PM PDT Station ID: [id number]
== END 2021-08-12 15:51 | disposition home or self-care (01) ==
LOC: DI 15:50
PROVIDERS: ATTEND Physician Assistant Medical
DX: I65.23 Occlusion and stenosis of bilateral carotid arteries (principal)
CPT/HCPCS: 93880

== ENCOUNTER 2021-11-24 08:00 | Outpatient (CLI) | payer MEDICARE, BC | END 2021-11-24 23:59 | disposition home or self-care (01) | LOC: LAB.R 08:00 | PROVIDERS: ATTEND Physician Assistant | DX: B37.2 Candidiasis of skin and nail (principal) | CPT/HCPCS: 87101 ==

== ENCOUNTER 2022-09-28 14:30 | Outpatient (CLI) | payer MEDICARE, BC | END 2022-09-28 23:59 | disposition short-term general hospital (02) | LOC: EMS 14:30 | DX: R11.2 Nausea with vomiting, unspecified (principal); R19.7 Diarrhea, unspecified; R41.0 Disorientation, unspecified; I10 Essential (primary) hypertension; R53.83 Other fatigue | CPT/HCPCS: A0425; A0429; A0888 ==

== ENCOUNTER 2022-10-07 14:09 | Outpatient (CLI) | payer MEDICARE, BC ==
[2022-10-07] MEDS ORDERED: iohexoL-300 100 ML VIAL ONE (15:25)
[2022-10-07] MEDS ORDERED: iohexoL-300 100 ML VIAL IVP ONE (16:03)
[2022-10-07] MEDS ORDERED: DIATRIZOATE MEGLU/DIATRIZO SOD 30 ML BOTTLE PO ONE (16:03)
--- NOTE | 2022-10-07 16:05 | CT Report ---
PROCEDURE: ABDOMEN/PELVIS W INDICATIONS: HEMOCCULT POSITIVE STOOL, HIATAL HERNIA CONTRAST: 100ml Omni 300 TECHNIQUE: After the administration of oral and intravenous contrast, 5 mm thick sections acquired from the diap hragms to the symphysis. 5 mm thick coronal and sagittal reformats were acquired. For radiation dos e reduction, the following was used: automated exposure control, adjustment of mA and/or kV accordin g to patient size. COMPARISON: None FINDINGS: Image quality: Excellent. Lung bases and heart: Small hiatal hernia. Otherwise unremarkable. Liver: Moderate diffuse hepatic steatosis. No focal liver mass. Gallbladder and biliary tree: No radiopaque stones or wall thickening. No biliary dilation. Spleen: No splenomegaly. Pancreas: No pancreatic ductal dilation. Adrenals: No adrenal nodule. Kidneys and ureters: No hydronephrosis. No renal cystic lesion which requires follow up. No solid mas s. Bowel and peritoneum: No bowel distension. No pathologic free fluid. There are mild diverticulosis. Lymph nodes: No central or retroperitoneal adenopathy. Vessels: No infrarenal aortic aneurysm. PELVIS Reproductive organs: Incidental note made of calcified uterine fibroids. No adnexal masses. Bladder: No abnormal wall thickening, accounting for underdistension. Pelvic lymph nodes: No pelvic adenopathy by size criteria. Bones: No aggressive osseous abnormality. Other: No significant ventral or inguinal hernia. IMPRESSION: 1. No acute abdominal process noted. 2. No obvious colonic lesion identified by CT. 3. Moderate diffuse hepatic steatosis. 4. Small hiatal hernia. Reviewed by: Omar Ball MD on 10/07/2022 4:03 PM PDT Approved by: Omar Ball MD on 10/07/2022 4:03 PM PDT Station ID: [id number]
[2022-10-07 17:37] LABS: ALBUMIN/GLOBULIN RATIO 1.5 (1.0-2.2); BILIRUBIN,TOTAL 0.9 mg/dL (0.2-1.0); CALCIUM 10.6 mg/dL (8.5-10.3); POTASSIUM 3.9 mmol/L (3.5-4.5); TOTAL PROTEIN 8.3 g/dL (6.4-8.9)
[2022-10-07 17:51] LABS: FERRITIN 298.1 ng/mL (11.0-306.8)
== END 2022-10-07 14:10 | disposition home or self-care (01) ==
LOC: LAB 14:09
PROVIDERS: ATTEND Physician Assistant Medical
DX: R19.5 Other fecal abnormalities (principal); K44.9 Diaphragmatic hernia without obstruction or gangrene; K21.9 Gastro-esophageal reflux disease without esophagitis; R10.84 Generalized abdominal pain; K76.0 Fatty (change of) liver, not elsewhere classified
CPT/HCPCS: 36415; 74177; 80053; 82565; 82728; 83540; 83690; 84466; Q9963; Q9967

== ENCOUNTER 2022-10-08 15:01 | Outpatient (CLI) | payer MEDICARE, BC ==
[2022-10-08 15:23] LABS: BASOPHILS # (AUTO) 0.1 10^3/uL (0.0-0.1); BASOPHILS % (AUTO) 0.8 %; EOSINOPHILS # (AUTO) 0.2 10^3/uL (0.0-0.7); EOSINOPHILS % (AUTO) 1.7 %; HCT - HEMATOCRIT 42.1 % (37.0-47.0); HGB - HEMOGLOBIN 14.4 g/dL (12.0-16.0); LYMPHOCYTES # (AUTO) 2.1 10^3/uL (1.5-3.5); LYMPHOCYTES % (AUTO) 22.9 %; MEAN CORPUSCULAR HEMOGLOBIN 31.5 pg (27.0-31.0); MEAN CORPUSCULAR HGB CONC 34.2 g/dL (32.0-36.0); MEAN CORPUSCULAR VOLUME 92.1 fL (81.0-99.0); MEAN PLATELET VOLUME 9.6 fL (7.9-10.8); MONOCYTES # (AUTO) 0.5 10^3/uL (0.0-1.0); MONOCYTES % (AUTO) 4.9 %; NEUTROPHILS # (AUTO) 6.4 10^3/uL (1.5-6.6); NEUTROPHILS % (AUTO) 69.4 %; PLT - PLATELET COUNT 236 10^3/uL (130-450); RED BLOOD COUNT 4.57 10^6/uL (4.20-5.40); RED CELL DISTRIBUTION WIDTH 11.5 % (12.0-15.0); WHITE BLOOD COUNT 9.2 x10^3/uL (4.8-10.8)
== END 2022-10-08 15:02 | disposition home or self-care (01) ==
LOC: LAB 15:01
PROVIDERS: ATTEND Physician Assistant Medical
DX: I10 Essential (primary) hypertension (principal); E83.52 Hypercalcemia; K92.2 Gastrointestinal hemorrhage, unspecified; R19.5 Other fecal abnormalities
CPT/HCPCS: 36415; 83970; 85025

== ENCOUNTER 2023-01-20 13:30 | Outpatient (CLI) | payer MEDICARE, BC ==
[2023-01-20 17:51] LABS: BASOPHILS % (AUTO) 0.4 %; EOSINOPHILS # (AUTO) 0.2 10^3/uL (0.0-0.7); EOSINOPHILS % (AUTO) 2.8 %; HCT - HEMATOCRIT 41.3 % (37.0-47.0); HGB - HEMOGLOBIN 13.4 g/dL (12.0-16.0); LYMPHOCYTES # (AUTO) 1.4 10^3/uL (1.5-3.5); LYMPHOCYTES % (AUTO) 24.2 %; MEAN CORPUSCULAR HEMOGLOBIN 30.2 pg (27.0-31.0); MEAN CORPUSCULAR HGB CONC 32.4 g/dL (32.0-36.0); MEAN CORPUSCULAR VOLUME 93.2 fL (81.0-99.0); MEAN PLATELET VOLUME 10.9 fL (7.9-10.8); MONOCYTES # (AUTO) 0.4 10^3/uL (0.0-1.0); MONOCYTES % (AUTO) 6.8 %; NEUTROPHILS # (AUTO) 3.7 10^3/uL (1.5-6.6); NEUTROPHILS % (AUTO) 65.4 %; PLT - PLATELET COUNT 145 10^3/uL (130-450); RED BLOOD COUNT 4.43 10^6/uL (4.20-5.40); RED CELL DISTRIBUTION WIDTH 13.2 % (12.0-15.0); WHITE BLOOD COUNT 5.6 x10^3/uL (4.8-10.8)
[2023-01-20 18:16] LABS: ALBUMIN 4.8 g/dL (3.2-5.5); ALBUMIN/GLOBULIN RATIO 1.5 (1.0-2.2); ALKALINE PHOSPHATASE 96 IU/L (42-121); ALT ALANINE AMINOTRANSFERASE 21 IU/L (10-60); AST ASPARTATE AMINOTRANSFERASE 19 IU/L (10-42); BILIRUBIN,TOTAL 0.5 mg/dL (0.2-1.0); BUN - BLOOD UREA NITROGEN 10 mg/dL (6-20); CALCIUM 10.2 mg/dL (8.5-10.3); CARBON DIOXIDE - CO2 27 mmol/L (21-32); CHLORIDE 102 mmol/L (101-111); CHOL/HDL RATIO 5.6 (<4.4); CHOLESTEROL 301 mg/dL; CREATININE 0.8 mg/dL (0.6-1.3); GFR - MDRD 69 (>89); GLUCOSE 120 mg/dL (74-104); HDL CHOLESTEROL 54 mg/dL; LDL CHOLESTEROL,CALCULATED 170 mg/dL; LDL/HDL RATIO 3.1 (<4.4); POTASSIUM 4.3 mmol/L (3.5-4.5); SODIUM 136 mmol/L (135-145); TOTAL PROTEIN 7.9 g/dL (6.4-8.9); TRIGLYCERIDES 387 mg/dL (48-352); VLDL CHOLESTEROL 77 mg/dL
[2023-01-20 18:27] LABS: THYROID STIMULATING HORMONE 1.82 uIU/mL (0.34-5.60)
== END 2023-01-20 13:45 | disposition home or self-care (01) ==
LOC: LAB.N 13:30
PROVIDERS: ATTEND Family Medicine
DX: E83.52 Hypercalcemia (principal); R41.3 Other amnesia; E78.5 Hyperlipidemia, unspecified
CPT/HCPCS: 36415; 80053; 80061; 82330; 82607; 83721; 83921; 84443; 85025

== ENCOUNTER 2023-03-24 13:30 | Emergency (ER) | payer MEDICARE, BC ==
[2023-03-24 13:56] VITALS: BP 142/53; O2SAT 97
--- NOTE | 2023-03-24 14:14 | ED Physician Documentation ---
PD HPI ABD PAIN - Stated complaint Stated Complaint: DIARRHEA,VOMIT,PX - Chief complaint Chief Complaint: Abd Pain - Additional information Additional information: 82-year-old female with history of recurrent diarrhea presents to the emergency department today for dark black bowel movements. Patient says for the last few months now she has been having chronic diarrhea mostly in the evenings but over the last couple weeks it has been picking up in volume and appears to be primarily happening in the evenings. Patient said her main concern is that last night she started to notice dark black bowel movements throughout the night as well as 1 time today. She denies any abdominal pain but endorses in abdominal discomfort and bloating. She has had no nausea or vomiting, she denies any new dizziness she says she is chronically dizzy at baseline. No chest pain. She only had 1 episode of diarrhea today. She also endorses an history of hemorrhoids that she feels like are more prominent than they normally are. She denies use of blood thinners do not see any blood thinners on her medication list, denies any dysuria or urinary complaints. PD PAST MEDICAL HISTORY - Past Medical History Past Medical History: Yes Cardiovascular: Hypertension, High cholesterol - Past Surgical History Past Surgical History: Yes - Present Medications Home Medications: Ambulatory Orders Medication Instructions Recorded Confirmed Atorvastatin Calcium 10 mg PO DAILY 05/24/20 06/20/21 Mecobalamin [B12 Active] 1,000 mcg PO DAILY 05/24/20 05/24/20 Melatonin/Pyridoxine [Melatonin 5 5 mg PO DAILY PM 05/24/20 05/24/20 mg Tablet] Metoprolol Tartrate [Lopressor] 50 mg PO DAILY 05/24/20 05/24/20 Pantoprazole [Protonix] 1 tab PO DAILY 05/24/20 05/24/20 Sertraline HCl [Zoloft] 1 tab PO DAILY 05/24/20 05/24/20 Ubidecarenone [Co Q-10] 100 mg PO DAILY 05/24/20 05/24/20 Ondansetron Odt [Zofran] 4 mg TL Q6H PRN #10 tablet 06/20/21 - Allergies Allergies/Adverse Reactions: Allergies Allergy/AdvReac Type Severity Reaction Status Date / Time erythromycin lactobionate * Allergy Severe Hives Verified 03/24/23 13:53 [From Erythrocin] Penicillins Allergy Severe Hives Verified 03/24/23 13:53 Sulfa (Sulfonamide Allergy Severe Hives Verified 03/24/23 13:53 Antibiotics) - Social History Does the pt smoke?: No Smoking Status: Never smoker Does the pt drink ETOH?: No Does the pt have substance abuse?: No - Immunizations Immunizations are current?: No - POLST Patient has POLST: No PD ED PE NORMAL - Vitals Vital signs reviewed: Yes - General General: Alert and oriented X 3, No acute distress, Well developed/nourished - Cardiac Cardiac: RRR, No murmur, No gallop, Strong equal pulses - Respiratory Respiratory: No respiratory distress, Clear bilaterally - Abdomen Abdomen: Normal bowel sounds, Soft (mild generalized tenderness with palpation, no gaurding), No organomegaly - Rectal Rectal: Other (rectal hemrrhoids, no internal hemrhoids palpated, no obvious bleeding, no dark stool visualized) - Derm Derm: Normal color, Warm and dry - Extremities Extremities: No edema - Neuro Neuro: Alert and oriented X 3 Results - Vitals Vitals: Vital Signs - 24 hr 03/24/23 13:46 Temperature 36 C L Heart Rate 55 L Respiratory 16 Rate Blood Pressure 142/53 H O2 Saturation 97 Oxygen O2 Source Room air - Labs Labs: Microbiology 03/24/23 15:45 Occult Blood - Final Stool Laboratory Tests 03/24/23 03/24/23 14:16 14:16 WBC 5.5 RBC 4.23 Hgb 12.8 Hct 38.8 MCV 91.7 MCH 30.3 MCHC 33.0 RDW 12.9 Plt Count 167 MPV 9.8 Neut # (Auto) 3.4 Lymph # (Auto) 1.5 Rapides # (Auto) 0.4 Eos # (Auto) 0.2 Baso # (Auto) 0.0 Absolute Nucleated RBC 0.00 Nucleated RBC % 0.0 Sodium 136 Potassium 4.4 Chloride 102 Carbon Dioxide 28 Anion Gap 6.0 BUN 11 Creatinine 0.8 Estimated GFR (MDRD) 69 L Glucose 110 H Calcium 9.5 Magnesium 1.7 Total Bilirubin 0.6 AST 19 ALT 23 Alkaline Phosphatase 80 Total Protein 7.2 Albumin 4.4 Globulin 2.8 Albumin/Globulin Ratio 1.6 Lipase 10 L PD Medical Decision Making - ED course ED course: 82-year-old female presents for concerns of dark black bowel movement. Patient reports that she has got chronic mild diarrhea she is not any blood thinners has not been taking frequent NSAIDs recently. Labs have been complete CBC does not show any anemia, chemistry also does not show any abnormalities potassium magnesium within normal limits, normal kidney function. A rectal exam was completed and did not visualize any dark black bowel movements guaiac was sent to the lab and came back negative. Patient remains hemodynamically stable, no tachycardia no hypotension afebrile. The plan was to discharge the patient unfortunately she ended up walking out prior to formal discharge. Attempted to call the patient but was unable to get a hold of her to update her that she is not having any blood coming out of her rectum at this time. And was going to tell her to follow-up with her primary care provider but was unable to get a hold of her. Patient does report that she has close contact with her primary care provider was going to be following up with her PCP soon. Departure - Departure Disposition: Left Prior to Disposition Clinical Impression: Diarrhea Qualifiers: Diarrhea type: unspecified type Qualified Code(s): R19.7 - Diarrhea, unspecified Condition: Good Forms: PCP List
[2023-03-24 14:21] LABS: BASOPHILS % (AUTO) 0.7 %; EOSINOPHILS # (AUTO) 0.2 10^3/uL (0.0-0.7); EOSINOPHILS % (AUTO) 3.1 %; HCT - HEMATOCRIT 38.8 % (37.0-47.0); HGB - HEMOGLOBIN 12.8 g/dL (12.0-16.0); LYMPHOCYTES # (AUTO) 1.5 10^3/uL (1.5-3.5); MEAN CORPUSCULAR HEMOGLOBIN 30.3 pg (27.0-31.0); MEAN CORPUSCULAR VOLUME 91.7 fL (81.0-99.0); MEAN PLATELET VOLUME 9.8 fL (7.9-10.8); MONOCYTES # (AUTO) 0.4 10^3/uL (0.0-1.0); MONOCYTES % (AUTO) 7.5 %; NEUTROPHILS # (AUTO) 3.4 10^3/uL (1.5-6.6); NEUTROPHILS % (AUTO) 61.5 %; PLT - PLATELET COUNT 167 10^3/uL (130-450); RED BLOOD COUNT 4.23 10^6/uL (4.20-5.40); RED CELL DISTRIBUTION WIDTH 12.9 % (12.0-15.0); WHITE BLOOD COUNT 5.5 x10^3/uL (4.8-10.8)
[2023-03-24 14:35] LABS: ALBUMIN 4.4 g/dL (3.2-5.5); ALBUMIN/GLOBULIN RATIO 1.6 (1.0-2.2); BILIRUBIN,TOTAL 0.6 mg/dL (0.2-1.0); CALCIUM 9.5 mg/dL (8.5-10.3); CREATININE 0.8 mg/dL (0.6-1.3); MAGNESIUM 1.7 mg/dL (1.7-2.3); POTASSIUM 4.4 mmol/L (3.5-4.5); TOTAL PROTEIN 7.2 g/dL (6.4-8.9)
== END 2023-03-24 17:13 | disposition home or self-care (01) ==
LOC: ED 13:30
DX: R19.7 Diarrhea, unspecified (principal); I10 Essential (primary) hypertension; E78.00 Pure hypercholesterolemia, unspecified; Z79.899 Other long term (current) drug therapy
CPT/HCPCS: 36415; 80053; 82272; 83690; 83735; 85025; 99283

== ENCOUNTER 2023-07-19 10:51 | Outpatient (CLI) | payer MEDICARE, BC ==
[2023-07-19 18:02] LABS: ALBUMIN 4.5 g/dL (3.2-5.5); ALBUMIN/GLOBULIN RATIO 1.6 (1.0-2.2); ALKALINE PHOSPHATASE 76 IU/L (42-121); ALT ALANINE AMINOTRANSFERASE 16 IU/L (10-60); AST ASPARTATE AMINOTRANSFERASE 14 IU/L (10-42); BILIRUBIN,TOTAL 0.4 mg/dL (0.2-1.0); BUN - BLOOD UREA NITROGEN 8 mg/dL (6-20); CALCIUM 10.3 mg/dL (8.5-10.3); CARBON DIOXIDE - CO2 27 mmol/L (21-32); CHLORIDE 105 mmol/L (101-111); CHOL/HDL RATIO 4.7 (<4.4); CHOLESTEROL 233 mg/dL; CREATININE 0.7 mg/dL (0.6-1.3); GFR - MDRD 80 (>89); GLUCOSE 109 mg/dL (74-104); HDL CHOLESTEROL 50 mg/dL; LDL CHOLESTEROL,CALCULATED 121 mg/dL; LDL/HDL RATIO 2.4 (<4.4); POTASSIUM 4.1 mmol/L (3.5-4.5); SODIUM 138 mmol/L (135-145); TOTAL PROTEIN 7.3 g/dL (6.4-8.9); TRIGLYCERIDES 310 mg/dL (48-352); VLDL CHOLESTEROL 62 mg/dL
== END 2023-07-19 10:52 | disposition home or self-care (01) ==
LOC: LAB.N 10:51
PROVIDERS: ATTEND Physician Assistant Medical
DX: E78.5 Hyperlipidemia, unspecified (principal)
CPT/HCPCS: 36415; 80053; 80061; 83721

== ENCOUNTER 2023-08-01 15:39 | Outpatient (CLI) | payer MEDICARE, BC ==
--- NOTE | 2023-08-01 16:32 | DEXA Report ---
PROCEDURE: Dexa Spine and/or Hip INDICATIONS: POST MENOPAUSAL TECHNIQUE: Dual energy x-ray absorptiometry (DXA) was performed on a ForeSee System. Regions measur ed are the AP Spine, femoral neck, and if needed forearm. COMPARISON: None FINDINGS: Lumbar Spine: Bone Mineral Density: 0.697 g/cm/cm,T score: -4.0. Osteoporosis. Left Femoral Neck: Bone Mineral Density: 0.609 g/cm/cm, T score: -3.1. Left Hip: Bone Mineral Density: 0.691 g/cm/cm,T score: -2.5. Osteoporosis. (T score greater or equal to -1.0: NORMAL) (T score from -1.1 to -2.4: OSTEOPENIA) (T score less than or equal to -2.5 to: OSTEOPOROSIS) Impression: By WHO criteria, this patient has osteoporosis. Patients with diagnosis of osteoporosis or osteopenia should have regular bone mineral density assess ment. For those eligible for Medicare, routine testing is allowed once every 2 years. Testing frequ ency can be increased for patients who have rapidly progressing disease or for those who are receivin g medical therapy to restore bone mass. Reviewed by: Mahnaz Valladares MD on 08/01/2023 4:31 PM PDT Approved by: Mahnaz Valladares MD on 08/01/2023 4:31 PM PDT Station ID: [id number]
== END 2023-08-01 15:40 | disposition home or self-care (01) ==
LOC: DI 15:39
PROVIDERS: ATTEND Physician Assistant Medical
DX: M81.0 Age-related osteoporosis without current pathological fracture (principal); Z78.0 Asymptomatic menopausal state